=== PATIENT | female | born 1975 | race Caucasian/White ===

== ENCOUNTER 2016-09-26 20:51 | Emergency (ER) | payer BC ==
[2016-09-26] MEDS ORDERED: TETANUS/DIPHTHERIA/PERTUSSIS 0.5 ML SYRINGE IM ONE ×2 (21:19→21:27)
[2016-09-26] MEDS ORDERED: AMOX/CLAV 875 MG/125 MG TABLET PO STA (21:19)
[2016-09-26] MEDS ORDERED: AMOX/CLAV 875 MG/125 MG TABLET PO ONE (21:27)
[2016-09-26] MEDS ORDERED: HYDROcod/ACET 5/325 Prepack 6 PO STA (21:31)
[2016-09-26] MEDS ORDERED: HYDROcod/ACET 5/325 Prepack 6 PO ONE (21:38)
== END 2016-09-26 22:00 | disposition home or self-care (01) ==
DX: S01.85XA Open bite of other part of head, initial encounter (principal); S11.85XA Open bite of other specified part of neck, initial encounter; S01.05XA Open bite of scalp, initial encounter; W54.0XXA Bitten by dog, initial encounter; Y92.018 Other place in single-family (private) house as the place of occurrence of the external cause; Z23 Encounter for immunization
CPT/HCPCS: 12001; 12011; 90471; 90715; 99283; A9270